=== PATIENT | male | born 1965 | race Caucasian/White ===

== ENCOUNTER 2025-09-16 13:45 | Outpatient (CLI) | payer OTHER ==
[~2025-09-16 13:45] MED LIST: Iopamidol-370 76% 500 ML MDV (1 ML CHARGE) ONE
[2025-09-16 15:03] LABS: Estimated GFR - POC 97.0
== END 2025-09-16 13:46 | disposition home or self-care (01) ==
LOC: CT 13:45
PROVIDERS: ATTEND Radiology Radiation Oncology
DX: C01 Malignant neoplasm of base of tongue (principal)
CPT/HCPCS: 36415; 70491; 82565; Q9967